=== PATIENT | male | born 1965 | race Caucasian/White ===

== ENCOUNTER → 2021-08-18 07:53 | Outpatient (CLI) | payer OTHER, SELFPAY ==
--- NOTE | 2021-08-18 08:00 | CT_ITS ---
EXAM: CT CHEST WITHOUT AND WITH INTRAVENOUS CONTRAST-Limited CLINICAL INDICATION: ABNORMAL STRESS TEST TECHNIQUE: Helically acquired images were obtained of the chest without and with intravenous contrast (for coronary artery calcium scoring and CT coronary). This CT exam was performed using one or more of the following dose reduction techniques: automated exposure control, adjustment of the mA and/or kV according to patient size, and/or use of iterative reconstruction technique. This report was created using [employer] report generation technology. MIP reconstructed images were created and reviewed. CONTRAST: IV 57mL Isovue-370 COMPARISON: None. FINDINGS: LUNGS AND PLEURAL SPACES: Incompletely imaged. No mass. No consolidation or edema. No pleural effusion or thickening. No pneumothorax. HEART: Report provided for Overread purposes only. Coronary calcium scoring and CTA coronary reported by another/cardiology service. Heart size is normal. No pericardial effusion. MEDIASTINUM: Unremarkable. No mediastinal or hilar adenopathy. Esophagus is unremarkable. No hiatal hernia. THYROID: Unremarkable. No thyroid lesions. BONES/JOINTS: Unremarkable. No suspicious lytic or blastic abnormality. VASCULATURE: Unremarkable. Thoracic aorta is non-dilated. No thoracic aortic dissection. No obvious central pulmonary embolism although this study was not performed with the pulmonary embolism protocol. IMPRESSION: No incidental findings requiring additional workup/follow-up. Electronically Signed: Santos Cordova MD (Brooks) at 14:40 EDT , Service support , EXAM: CT CHEST WITHOUT AND WITH INTRAVENOUS CONTRAST-Limited CLINICAL INDICATION: ABNORMAL STRESS TEST TECHNIQUE: Helically acquired images were obtained of the chest without and with intravenous contrast (for coronary artery calcium scoring and CT coronary). This CT exam was performed using one or more of the following dose reduction techniques: automated exposure control, adjustment of the mA and/or kV according to patient size, and/or use of iterative reconstruction technique. This report was created using [employer] report generation technology. MIP reconstructed images were created and reviewed. CONTRAST: IV 57mL Isovue-370 COMPARISON: None. FINDINGS: LUNGS AND PLEURAL SPACES: Incompletely imaged. No mass. No consolidation or edema. No pleural effusion or thickening. No pneumothorax. HEART: Report provided for Overread purposes only. Coronary calcium scoring and CTA coronary reported by another/cardiology service. Heart size is normal. No pericardial effusion. MEDIASTINUM: Unremarkable. No mediastinal or hilar adenopathy. Esophagus is unremarkable. No hiatal hernia. THYROID: Unremarkable. No thyroid lesions. BONES/JOINTS: Unremarkable. No suspicious lytic or blastic abnormality. VASCULATURE: Unremarkable. Thoracic aorta is non-dilated. No thoracic aortic dissection. No obvious central pulmonary embolism although this study was not performed with the pulmonary embolism protocol. CT/Limited Chest CT w/CCTA
[2021-08-18 08:06] VITALS: BP 115/85; PULSE 62; RESP 16; TEMP 37.1; O2SAT 96; BMI 26.5
[2021-08-18 08:29] VITALS: BP 115/85; PULSE 60
[2021-08-18] MEDS: Nitroglycerin SL (ED/IMG/CATH) 0.4 MG TABLET SL (08:29)
[2021-08-18 08:40] VITALS: BP 120/78; PULSE 62; RESP 14; O2SAT 98
--- NOTE | 2021-08-21 19:02 | CA.SCORE ---
Calcium Scoring Date of Study:: 08/18/21 Coronary Calcium Scoring: High-resolution Computed Tomographic imaging of the chest was performed on 08/18/2021 with particular attention paid to the coronary arteries. Images from the examination were analyzed for the presence and extent of coronary artery calcification , using coronary calcium quantification software. The patient tolerated the procedure well and there were no complications. The results of the coronary calcification analysis are provided below. Findings Coronary Artery Left Main (LM): 0 Left Anterior Descending (LAD): 3.58 Left Circumflex (LCX): 0 Right Coronary Artery (RCA): 0 Total Agatston Score: 3.58 Percentile Ranking: According to prepublished reference tables less than 25% of patients of the same gender/similar age had the same/lower scores Calcium Scoring Interpretation: 0 No identifiable atherosclerotic plaque. Very low cardiovascular disease risk. <5% chance of presence coronary artery disease A Negative Examination 1-10 Minimal Plaque burden. Significant coronary artery disease very unlikely. 11-100 Mild plaque burden. Likely mild or minimal coronary atherosclerosis. 101-400 Moderate plaque burden Moderate non-obstructive coronary artery disease highly likely. Over 400 Extensive plaque burden. High likelihood of at least one significant coronary stenosis (>50% diameter) Calcium Score: 1 -10 Significant coronary artery disease very unlikely Conclusion: Continue cardiovascular risk factor evaluation and care as deemed appropriate. This note was generated using a voice recognition system and there may be incorrect words, spelling or punctuation that were not noted when reviewing the office note prior to saving.
--- NOTE | 2021-08-21 19:04 | CCTA_ITS ---
CCTA w/Cont Coronary Arteries LEFT MAIN CORONARY ARTERY: The left main coronary artery appears to be a large vessel giving rise to the left anterior descending and left circumflex coronary arteries. It appears angiographically within normal limits. LEFT ANTERIOR DESCENDING CORONARY ARTERY: The left anterior descending coronary artery appears to be a large vessel giving rise to a septal dumpster operator system and a diagonal branching system. The proximal LAD has a small nonobstructive calcified appearing plaque and otherwise appears to be angiographically within normal limits. LEFT CIRCUMFLEX CORONARY ARTERY: The left circumflex coronary artery appears to be a nondominant system. It appears to be angiographically within normal limits. RIGHT CORONARY ARTERY: The right coronary artery appears to be a large dominant system. It appears to be angiographically within normal limits. THORACIC AORTA: The thoracic aorta appears to have a small area of calcification in the aortic root and otherwise appears to be angiographically within normal limits. PULMONARY ARTERY: The main and right and left pulmonary arteries appear to be patent with no obvio us filling defects. LEFT ATRIUM/APPENDAGE: The left atrial appendage appears to be without obvious filling defects. MITRAL VALVE: The mitral valve appears to be bileaflet. AORTIC VALVE: The aortic valve appears to be trileaflet. LEFT VENTRICLE: The left ventricle appears to demonstrate normal left ventricular wall motion and systolic function with the reported LVEF of 56%. CORONARY CALCIUM SCORE: The coronary calcium score was reported at 3.58 which according to prepublished reference tables is indicative of minimal plaque burden and the likelihood of significant coronary artery disease being-very unlikely. This note was generated using a voice recognition system and there may be incorrect words, spelling or punctuation that were not noted when reviewing the office note prior to saving.
== END ==
PROVIDERS: PCP Nurse Practitioner Family; Referring Provider Internal Medicine Cardiovascular Disease; Visit Provider Internal Medicine Cardiovascular Disease
DX: R07.9 Chest pain, unspecified (principal); R00.2 Palpitations; R93.1 Abnormal findings on diagnostic imaging of heart and coronary circulation; R94.39 Abnormal result of other cardiovascular function study; E78.2 Mixed hyperlipidemia; Z82.49 Family history of ischemic heart disease and other diseases of the circulatory system
CPT/HCPCS: 75571; 75574; 76380; Q9967

== ENCOUNTER 2024-05-17 14:58 | Day surgery (SDC) | payer OTHER, SELFPAY ==
[2024-05-17] VITALS (19 sets, daily range): BP systolic 119–156; BP diastolic 83–96; PULSE 12–95; RESP 16–20; TEMP 35.9–36.6; O2SAT 90–99; BMI 26.2
--- NOTE | 2024-05-17 15:14 | EX.ED.UPPERE ---
HPI History of Present Illness Chief Complaint: Upper Extremity Injury Detail of Chief Complaint: Left wrist injury Informant: patient Narrative Narrative: Patient presents with a left wrist injury that occurred prior to coming in the ER. Patient states that he was on the second rung of a ladder coming down when the ladder started to tip and he fell backwards on his buttocks and try to catch and braced himself with his arms and he injured his left wrist. He fell onto concrete and there was a wall behind him and 2 x 4. Patient is ambidextrous. Denies striking his head or loss of consciousness. Is not on blood thinners. Denies any other injuries. Unsure of his last tetanus shot. [facility] Medical History (Updated 05/17/24 @ 21:[address] Yoan Leavitt MD) Family history of [place] (myocardial infarction) Family history of early CAD Mixed hyperlipidemia Abnormal stress test Abnormal echocardiogram Home Medications ?Medication ?Instructions ?Recorded ?Last Taken ?Type multivitamin 1 tab PO DAILY 12/09/23 Unknown History saw palmetto 450 mg capsule 450 mg PO DAILY 12/09/23 Unknown History acetaminophen 500 mg tablet 1,000 mg (2 x 500 mg) PO Q8 #0 tabs 05/17/24 Unknown Rx cephalexin 500 mg capsule 500 mg PO Q8H 5 days #15 caps 05/17/24 Unknown Rx oxycodone 5 mg tablet 5 - 10 mg (1 - 2 x 5 mg) PO Q4H 05/17/24 Unknown Rx PRN PRN Pain Score 4-10 5 days #30 tabs Allergy/AdvReac Type Severity Reaction Status Date / Time No Known Allergies Allergy Verified 05/17/24 15:00 Family History Brother Myocardial infarction, Onset Age: 46 Aortic aneurysm Brother Aortic aneurysm Brother Aortic aneurysm Sister Aortic aneurysm Osteoporosis Surgical History (Updated 05/17/24 @ 19:[address] Yoan Leavitt MD) History of vasectomy History of appendectomy History of knee surgery Social History Smoking Status: Never smoker alcohol intake: current details: occasional substance use type: does not use caffeine: Yes Type: coffee Number of servings: 2 ROS ROS ED Review of Systems ROS Unobtainable: other Constitutional Constitutional ED: Reports lethargy; Denies chills, fever(s), sweats or weight loss Eyes Eyes: Denies blurry vision, change in vision or diplopia ENT ENT ED: Denies rhinorrhea or sore throat Cardiovascular Cardiovascular: Denies chest pain, orthopnea or racing heartbeat Respiratory/Chest Respiratory/Chest: Denies cough, dyspnea, dyspnea on exertion, orthopnea or sputum Gastrointestinal Gastrointestinal: Denies abdominal pain, diarrhea, nausea or vomiting Genitourinary Genitourinary ED: Denies dysuria, hematuria or urinary frequency Musculoskeletal Musculoskeletal: Reports other Details: Left wrist injury ; Denies arthralgias, back pain, myalgias or neck pain Integumentary Denies abscess, Abrasions or rash Neurologic Neurologic: Denies headache(s) or weakness Psychiatric Psychiatric: Denies anxiety, depression or suicidal thoughts Endocrine Endocrinology: Denies polydipsia, polyphagia or polyuria Hematologic/Lymphatic Hematologic/Lymphatic: Denies easy bleeding, easy bruising or lymphadenopathy Allergic/Immunologic Allergic/Immunologic ED: Denies mouth swelling, tongue swelling or urticaria EXAM Physical Exam Const Vital Signs: 05/17/24 15:00 Temperature 96.7 F L Temperature Source Temporal Pulse Rate 57 L Respiratory Rate 16 Blood Pressure 119/84 H Blood Pressure Mean 95 Pulse Ox 98 Oxygen Delivery Method Room Air Positive well nourished and well developed General Appearance ED: well developed and NAD HEENT Reports TM's clear and moist mucous membranes normocephalic and atraumatic; Negative for trauma or tenderness Tympanic Membrane ED: Yes TM's clear Eyes PERRL and EOMs intact bilaterally General Eye ED: Negative for pale conjunctiva or scleral icterus Neck no lymphadenopathy, supple and no JVD General: Negative for tenderness Chest Wall inspection of chest normal and palpation of chest normal Chest: Negative for tenderness Resp normal respiratory effort and clear to auscultation bilaterally Effort and Inspection: Negative for respiratory distress or pain with movement Auscultation: Negative for rhonchi, wheezes or diminished lung sounds Cardio regular rate, regular rhythm, S1 normal heart sound, S2 normal heart sound and no murmurs Peripheral Pulses: pulses 2+ throughout GI normal to inspection, nondistended, normoactive bowel sounds, soft to palpation, non-tender, non-distended and no masses Back/Spine no CVA tenderness and no thoracic nor lumbar tenderness Extremity Extremity Narrative: Left wrist-obvious deformity. Patient has a small 1 cm laceration over the volar aspect of the wrist over the ulnar aspect. No active bleeding. Neurovascular intact distally. No pain at the elbow. General Extremety ED: Negative for edema General Extremity: Negative for edema Neuro oriented x3, CN's II-XII intact bilaterally, no sensory deficits noted and gait normal Sensorium / Orientation: awake, alert, oriented to person, oriented to place and oriented to time Motor Exam: strength 5/5 throughout and strength abnormal Psych mental status grossly normal Skin no rashes or lesions noted and no wounds MDM MDM MDM Narrative Medical decision making narrative: Patient with injury to the left wrist. He has a distal radius fracture and ulnar styloid fracture. He has a small 1 cm laceration over the ulnar aspect of the volar wrist without active bleeding and there is no fat extruding. I suspect that clinically patient based on the x-ray fracture and where the soft tissue wound is feel this is unlikely an open fracture. I discussed case with orthopedic surgeon on-call Dr. Leavitt. He was able to visualize the x-rays. He asked that I reduce the fracture and he would be happy to follow patient up in the office. Patient will be given a tetanus booster. I did consent the patient for procedural sedation. He received propofol 130 mg IV with good sedation. Postreduction pulses were checked and he had normal pulses and normal cap refill. Patient with normal sensation after splint placement. Patient was placed in an AP splint that was fabricated by myself. Postreduction x-rays will be obtained. Postreduction films do look like there is a good reduction. Patient does have an ulnar styloid fracture. I discussed this again with the orthopedic surgeon Dr. Leavitt who is now concerned about an open fracture and would like to take the patient to the OR and do a washout and fix the fracture. Discussed this with the patient as well. Will give him a gram of Ancef IV. Radiography Diagnostic Testing: Three-view x-rays of the left wrist obtained interpreted by myself as fracture of the distal radius with dorsal displacement and angulation. Radiology in agreement that they also noted a styloid fracture of the ulna. Three-view x-rays postreduction obtained interpreted by myself as good reduction of distal radius fracture that appears now to be intra-articular. Official report from radiology pending. Procedures Procedural Sedation 1 (Initial Baseline): Consent Signed: Yes Any Problems With Anesthesia: No You/Your family experience fever (hyperthermia) w/anesthesia: No Sedation medication: Propofol Dose: 130 Route: IV Maliampati Score: Class I ASA Classification: I Discharge Plan Dx/Rx/DC Orders Clinical Impression: Distal radial fracture Disposition Disposition: Acute Care Hospital [facility] Discharge Date/Time: 05/17/24 18:49
[2024-05-17] MEDS: Ondansetron 4 MG/2 ML Vial IV (15:23)
[2024-05-17] MEDS: Morphine 4 MG/ML Syringe IV (15:23)
[2024-05-17] MEDS: Diphth,Pertuss(Acell),Tet Vac 0.5 ML Vial IM (15:23)
--- NOTE | 2024-05-17 15:42 | RAD_ITS ---
EXAM: XR LEFT WRIST COMPLETE, 3 OR MORE VIEWS CLINICAL INDICATION: injury TECHNIQUE: Frontal, lateral and oblique views of the left wrist. COMPARISON: No relevant prior studies available. FINDINGS: BONES/JOINTS: Fracture of the ulnar styloid. Comminuted and impacted distal radial fracture. There is dorsal displacement of the distal radial fracture fragment. Preservation of the joint space. No sclerotic or destructive changes observed. SOFT TISSUES: Unremarkable. No soft tissue swelling or gas. No radiopaque foreign body. RAD/Wrist min 3 Views IMPRESSION: 1. Fracture of the ulnar styloid. 2. Comminuted and impacted distal radial fracture. There is dorsal displacement of the distal radial fracture fragment. Electronically Signed: Rick Finnegan MD at 16:12 EDT ,
--- NOTE | 2024-05-17 16:35 | RAD_ITS ---
EXAM: XR LEFT WRIST COMPLETE, 3 VIEWS CLINICAL INDICATION: Post reduction TECHNIQUE: Frontal, lateral and oblique views of the left wrist. COMPARISON: Study done earlier today FINDINGS: BONES/JOINTS: Fracture of the ulnar styloid. Comminuted and impacted distal radial fracture. There is improved alignment of the distal radial fracture fragment. No sclerotic or destructive changes observed. SOFT TISSUES: Unremarkable. Soft tissue swelling. No radiopaque foreign body. RAD/Wrist min 3 Views IMPRESSION: 1. Fracture of the ulnar styloid. 2. Comminuted distal radial fracture. Improved alignment status post reduction. Electronically Signed: Rick Finnegan MD at 17:30 EDT ,
[2024-05-17] MEDS: Cefazolin 1 GM/50 ML BAG IV (17:25)
--- NOTE | 2024-05-17 17:25 | EKG12_ITS ---
Test Reason : PRE OP Blood Pressure : / mmHG Vent. Rate : 053 BPM Atrial Rate : 053 BPM P-R Int : 202 ms QRS Dur : 090 ms QT Int : 426 ms P-R-T Axes : 042 001 035 degrees QTc Int : 399 ms Sinus bradycardia Otherwise normal ECG When compared with ECG of 04-APR-2009 10:24, No significant change was found Confirmed by LOLLY MARTINEZ, ASH ([id number]), slip operator SHERRELL VILLARREAL ([id number]) on 05/20/2024 1:30:30 PM Referred By: MARCK Confirmed By:ASH AMBROCIO MD
--- NOTE | 2024-05-17 19:09 | PCM.PRE.AN2 ---
ASA Classification* ASA Classification ASA Classification: 2 and E Assessment & Plan Anesthesia* Anesthesia Assessment Anesthesia Assessment: Discussed sedation and/or anesthesia options, risks, benefits, and alternatives with patient/parents/legal guardian/POA. Questions invited. The patient/parents/legal guardian/POA seems to understand and agrees to proceed with anesthesia plan. Reviewed the physical assessment, medical history, allergy history and patient home medications list prior to surgery/procedure/anesthetic and documented any changes. Performed airway and anesthesia risk assessments. Anesthesia Type Anesthesia Type: General (RSI, Food 11 am this morning) Anesthesia Focused Assessment* Temperature: 97.7 F Pulse Rate: 62 Blood Pressure: 126/86 Respiratory Rate: 16 Pulse Ox: 99 Airway Assessment Mouth opens: >3 cm Mallampati Score: II Focused Labs Anesthesia Preop lab: CBC WBC 6.2 k/mm3 (4.4-11.0) 06/24/13 06:50 RBC 4.28 M/mm3 (4.6-6.2) L 06/24/13 06:50 Hgb 13.9 g/dl (13.0-16.5) 06/24/13 06:50 Hct 40.1 % (40-54) 06/24/13 06:50 Plt Count 176 K/mm3 (150-450) 06/24/13 06:50 CHEMISTRY Potassium 3.8 mmol/L (3.5-5.1) 06/24/13 06:50 Sodium 141 mmol/L (136-145) 06/24/13 06:50 BUN 11 mg/dL (7-18) 06/24/13 06:50 Creatinine 1.0 mg/dL (0.8-1.3) 06/24/13 06:50 Glucose 93 mg/dL (70-110) 06/24/13 06:50 COAG Pre-Assessment Diagnosis/Proposed Procedure Planned Operative Procedure(s): ORIF Radial fracture Anesthesia History Anesthesia History - state archivist: Anesthesia History - state archivist Hx Hospitalization Any Problems With Anesthesia [ No 05/17/24 16:02 1 (Initial Baseline)] Any Problems With Anesthesia No 05/17/24 17:06 Cholinesterase deficiency No 05/17/24 17:06 You/Your Family Experience No 05/17/24 17:06 fever (hyperthermia) with Relationship Recent Exposure to Contagious No 05/17/24 17:06 Disease Does patient have nerve No 05/17/24 17:06 stimulator Patient instructed to have No 05/17/24 17:06 device shut off --Does patient have Pacemaker No 05/17/24 17:06 or ICD? When Was Last Pacemaker Check QUESTION #4 FULL TEXT: You/Your Family Experience fever (hyperthermia) with Anesthesia Last Oral Intake Last Oral intake: Last Oral Intake NPO since 11:00 05/17/24 17:06 Meds taken in AM with sips of water? Meds patient instructed to take am of surgery PONV PONV - state archivist: PONV - state archivist Female HX of Motion Sickness HX of N/V After Surgery Non-Smoker Duration of Surgery greater than 60 minutes Number of Risk Factors PONV Score Height & Weight Height & Weight: Anesthesia: Height & Weight Height 5 ft 9 in 05/17/24 17:06 Weight: 80.739 kg 05/17/24 17:06 Body Mass Index (BMI) 26.2 05/17/24 17:06 Respiratory Assessment Respiratory Assessment - state archivist: Respiratory Tract Infection Hx - state archivist Hx Respiratory Tract Infection No 05/17/24 17:06 STOP Sleep Apnea STOP Sleep Apnea - state archivist: STOP Sleep Apnea - state archivist Hx Hypertension No 05/17/24 17:06 Hx Sleep Apnea No 05/17/24 17:06 CPAP BIPAP Do you snore loudly (louder No 05/17/24 17:06 than talking or can be heard Do you often feel tired/ No 05/17/24 17:06 fatigued/ sleepy during daytime? Has anyone observed you stop No 05/17/24 17:06 breathing during sleep? STOP Results Negative 05/17/24 17:06 QUESTION #5 FULL TEXT : Do you snore loudly (louder than talking or can be heard through closed doors)? Tobacco Use History Tobacco Use History - state archivist: Tobacco Use History - state archivist Tobacco Use Non-smoker 06/12/21 11:39 Smoking Status Never smoker 05/17/24 15:30 Hx Tobacco Use Years Smoking Packs Smoked per Day Smoking Cessation Date was within the last 15 years Hx Smoking Cessation Date Hx Smoking Cessation Counseling Hematologic Medial History Hematologic Hx - state archivist: Hematologic Medical Hx - assistant merchandise manager Hx of Blood Transfusion Hx of Transfusion in last 3 Months Date of Last Transfusion (if within last 3 months) Ever experience any problems with transfusion(s)? Specify any problems Hx of Preganancy in last 3 Months Nurse Filling Out Transfusion & Questions: Date: Time: Patient unable to answer at this time (ie. confused, unrespo /Reproduction History /Reproductive History - state archivist: /Reproductive Hx- state archivist Hx Now No 05/17/24 17:06 Gestational Age (in weeks): EDC: Hx Hx Para Hx Section SAB No 05/17/24 17:06 [facility] Medical History Family history of [place] (myocardial infarction) Family history of early CAD Mixed hyperlipidemia Abnormal stress test Abnormal echocardiogram Home Medications ?Medication ?Instructions ?Recorded ?Last Taken ?Type multivitamin 1 tab PO DAILY 12/09/23 Unknown History saw palmetto 450 mg capsule 450 mg PO DAILY 12/09/23 Unknown History cephalexin 500 mg capsule 500 mg PO Q6 #40 CAPSULES 05/17/24 Unknown Rx hydrocodone-acetaminophen 5-325mg 1 tab PO Q4H PRN PRN Pain 3 days 05/17/24 Unknown Rx 5mg-325mg #15 TABLETS Allergy/AdvReac Type Severity Reaction Status Date / Time No Known Allergies Allergy Verified 05/17/24 15:00 Family History Brother Myocardial infarction, Onset Age: 46 Aortic aneurysm Brother Aortic aneurysm Brother Aortic aneurysm Sister Aortic aneurysm Osteoporosis Surgical History History of vasectomy History of appendectomy History of knee surgery Social History Smoking Status: Never smoker alcohol intake: current details: occasional substance use type: does not use caffeine: Yes Type: coffee Number of servings: 2 Review of Systems (Anesthesia) ROS Narrative System reviewed and no additional complaints, except as documented.
--- NOTE | 2024-05-17 19:39 | HP.PCM_ITS ---
[facility] - General General Date of Admission: 05/17/24 Chief Complaint: Left wrist injury HPI Narrative ANY LAMBERT, is a 59 M who presents with limited medical history. Patient was climbing up a ladder today trying to carry some shingles. When he was stepping down the second rung per his son the second rung broke and patient fell backwards. He landed on his left arm. Patient writes with his left arm but overall is ambidextrous. 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 He denies any associated numbness and tingling. Current pain is a 4 out of 10 in his left wrist. Have a closed reduction in the emergency department. They did note that he had ulnar-sided injury with laceration on that side initially there was not felt to be any ulnar-sided fracture however upon postreduction films became evident that there was a ulnar styloid fracture and significant concern for a open fracture prompted urgent orthopedic consultation. [facility] Medical History Family history of [place] (myocardial infarction) Family history of early CAD Mixed hyperlipidemia Abnormal stress test Abnormal echocardiogram Home Medications ?Medication ?Instructions ?Recorded ?Last Taken ?Type multivitamin 1 tab PO DAILY 12/09/23 Unknown History saw palmetto 450 mg capsule 450 mg PO DAILY 12/09/23 Unknown History cephalexin 500 mg capsule 500 mg PO Q6 #40 CAPSULES 05/17/24 Unknown Rx hydrocodone-acetaminophen 5-325mg 1 tab PO Q4H PRN PRN Pain 3 days 05/17/24 Unknown Rx 5mg-325mg #15 TABLETS Allergy/AdvReac Type Severity Reaction Status Date / Time No Known Allergies Allergy Verified 05/17/24 15:00 Family History Brother Myocardial infarction, Onset Age: 46 Aortic aneurysm Brother Aortic aneurysm Brother Aortic aneurysm Sister Aortic aneurysm Osteoporosis Surgical History (Updated 05/17/24 @ 19:[address] Yoan Leavitt MD) History of vasectomy History of appendectomy History of knee surgery Social History Smoking Status: Never smoker alcohol intake: current details: occasional substance use type: does not use caffeine: Yes Type: coffee Number of servings: 2 ROS ROS Narrative 14 point review systems outside of what is mentioned in HPI is negative Vital Signs Vital Signs Vital Signs: 05/17/24 15:00 05/17/24 16:13 05/17/24 16:32 Temperature 96.7 F L Temperature Source Temporal Pulse Rate 57 L 54 L Pulse Rate [1 (Initial Baseline)] 12 L Pulse Rate [2] 53 L Pulse Rate [3] 60 Pulse Rate [4] 57 L Respiratory Rate 16 18 Respiratory Rate [1 (Initial Baseline)] 18 Respiratory Rate [2] 17 Respiratory Rate [3] 20 H Respiratory Rate [4] 20 H Blood Pressure 119/84 H 125/88 H Blood Pressure [1 (Initial Baseline)] 135/87 H Blood Pressure [2] 142/83 H Blood Pressure [3] 133/94 H Blood Pressure [4] 126/89 H Blood Pressure Mean 95 Blood Pressure Source Blood Pressure Position Blood Pressure Location Pulse Ox 98 98 Oxygen Delivery Method Room Air Room Air Oxygen Delivery Method [1 (Initial Baseline)] Nasal Cannula Oxygen Delivery Method [2] Nasal Cannula Oxygen Delivery Method [3] Nasal Cannula Oxygen Delivery Method [4] Nasal Cannula Oxygen Flow Rate (L/min) [1 (Initial Baseline)] 2 Oxygen Flow Rate (L/min) [2] 2 Oxygen Flow Rate (L/min) [3] 2 Oxygen Flow Rate (L/min) [4] 2 05/17/24 16:32 05/17/24 16:37 05/17/24 16:42 Temperature Temperature Source Pulse Rate Pulse Rate [1 (Initial Baseline)] Pulse Rate [2] Pulse Rate [3] Pulse Rate [4] Respiratory Rate Respiratory Rate [1 (Initial Baseline)] Respiratory Rate [2] Respiratory Rate [3] Respiratory Rate [4] Blood Pressure Blood Pressure [1 (Initial Baseline)] Blood Pressure [2] Blood Pressure [3] Blood Pressure [4] Blood Pressure Mean Blood Pressure Source Blood Pressure Position Blood Pressure Location Pulse Ox Oxygen Delivery Method Room Air Room Air Room Air Oxygen Delivery Method [1 (Initial Baseline)] Oxygen Delivery Method [2] Oxygen Delivery Method [3] Oxygen Delivery Method [4] Oxygen Flow Rate (L/min) [1 (Initial Baseline)] Oxygen Flow Rate (L/min) [2] Oxygen Flow Rate (L/min) [3] Oxygen Flow Rate (L/min) [4] 05/17/24 17:00 05/17/24 17:03 05/17/24 17:06 Temperature 97.7 F L 97.7 F L Temperature Source Temporal Pulse Rate 62 61 62 Pulse Rate [1 (Initial Baseline)] Pulse Rate [2] Pulse Rate [3] Pulse Rate [4] Respiratory Rate 17 16 16 Respiratory Rate [1 (Initial Baseline)] Respiratory Rate [2] Respiratory Rate [3] Respiratory Rate [4] Blood Pressure 156/90 H 156/88 H 156/90 H Blood Pressure [1 (Initial Baseline)] Blood Pressure [2] Blood Pressure [3] Blood Pressure [4] Blood Pressure Mean 112 110 112 Blood Pressure Source Monitor Blood Pressure Position Supine Blood Pressure Location Right Arm Pulse Ox 98 98 98 Oxygen Delivery Method Room Air Room Air Oxygen Delivery Method [1 (Initial Baseline)] Oxygen Delivery Method [2] Oxygen Delivery Method [3] Oxygen Delivery Method [4] Oxygen Flow Rate (L/min) [1 (Initial Baseline)] Oxygen Flow Rate (L/min) [2] Oxygen Flow Rate (L/min) [3] Oxygen Flow Rate (L/min) [4] 05/17/24 18:37 05/17/24 19:10 Temperature 97.7 F L Temperature Source Pulse Rate 62 62 Pulse Rate [1 (Initial Baseline)] Pulse Rate [2] Pulse Rate [3] Pulse Rate [4] Respiratory Rate 16 16 Respiratory Rate [1 (Initial Baseline)] Respiratory Rate [2] Respiratory Rate [3] Respiratory Rate [4] Blood Pressure 126/86 H 126/86 H Blood Pressure [1 (Initial Baseline)] Blood Pressure [2] Blood Pressure [3] Blood Pressure [4] Blood Pressure Mean 99 Blood Pressure Source Blood Pressure Position Blood Pressure Location Pulse Ox 99 99 Oxygen Delivery Method Room Air Oxygen Delivery Method [1 (Initial Baseline)] Oxygen Delivery Method [2] Oxygen Delivery Method [3] Oxygen Delivery Method [4] Oxygen Flow Rate (L/min) [1 (Initial Baseline)] Oxygen Flow Rate (L/min) [2] Oxygen Flow Rate (L/min) [3] Oxygen Flow Rate (L/min) [4] Weight Weight: 178 lb Body Mass Index (BMI) 26.2 Physical Exam Const alert, oriented x3 and no apparent distress General Appearance: cooperative, comfortable and well kempt HEENT normocephalic Eyes PERRL Neck No nuchal rigidity Resp normal respiratory effort Cardio regular rate GI non-distended Extremity Extremity Narrative: Left upper extremity: Patient is in a splint which goes out with up his fingers. All fingers are warm and pink with brisk cap refill. Patient is able to slightly move all digits. Patient able to give thumbs up. Sensations intact light touch R/M/U distally. Splint was not removed for patient's comfort. Will reexamine preoperatively/intraoperatively. Per reports from the emergency department patient does have a 1 cm laceration over the distal ulna. Neuro oriented x3 and CN's II-XII intact bilaterally Speech: speech normal Psych affect normal Results Medical Records Data Attestation: I reviewed the patient's medical records Imaging Radiology Impression Wrist X-Ray 05/17/24 15:42 IMPRESSION: 1. Fracture of the ulnar styloid. 2. Comminuted and impacted distal radial fracture. There is dorsal displacement of the distal radial fracture fragment. Electronically Signed: Rick Finnegan MD at 16:12 EDT , Wrist X-Ray 05/17/24 16:35 IMPRESSION: 1. Fracture of the ulnar styloid. 2. Comminuted distal radial fracture. Improved alignment status post reduction. Electronically Signed: Rick Finnegan MD at 17:30 EDT , Assessment & Plan Assessment/Plan (1) Distal radial fracture: PLAN: Patient has a 2 part intra-articular distal radius fracture with grade 1 open ulnar styloid fracture. Natural history of the disease process and treatment options were discussed the patient. Patient did receive antibiotics in the emergency department. I discussed the patient that overall the alignment of the distal radius after close reduction with appropriate however with an open fracture we did recommend irrigation debridement of the wound and fixation of the fracture at that time. More importantly we will need to irrigate debride the ulnar styloid fracture with plans to repair it as it is at the root of the ulnar styloid. Risks and benefits of the procedure were discussed the patient including but not limited to blood loss, DVTs, PEs, nervous damage complex, the risk of anesthesia, loss of life. Nonunion, malunion, painful hardware and failed hardware are also risk associated with the surgery. Patient demonstrates an understanding. His is at bedside and also demonstrates understanding. We are proceeding based on the emergency room assessment of an open fracture. The team is here and available. Additionally, there is not and appropriate operating room time in the next 24 hours so I did elect to proceed with surgery in an emergent fashion this evening. All parties are agreeable to the treatment plan. Will redose his antibiotics intraoperatively. I will plan on discharging the patient with 1 week of antibiotics after surgery.
[2024-05-17] MEDS: Cefazolin 2 GM in 0.9% Normal Saline (100mL Bag) 100 ML IV (19:52)
--- NOTE | 2024-05-17 20:00 | RAD_ITS ---
STUDY: INTRAOPERATIVE FLUOROSCOPY TECHNIQUE: The examination was performed with referring physician in attendance. Under fluoroscopic observation, fluoroscopic images were obtained. Radiologist was not present for the study. Radiologist did not perform the procedure. This dictation is for documentation of the radiation dosage only. There is no interpretation of the images. TOTAL NUMBER OF IMAGES: 1 COMPARISON: None RADIATION DOSE: 0.72 mGy FLUOROSCOPY TIME: 47.6 seconds REASON FOR EXAM: ORIF Male, 59 years old. FINDINGS: Fracture ORIF. RAD/Wrist 2 Views IMPRESSION: Fluoroscopic assistance images were obtained. Dictation for documentation purposes only. Electronically Signed: Rick Finnegan MD at 21:54 EDT ,
[2024-05-17] MEDS: Bupivacaine Mpf 0.5% 30 ML VIAL (21:13)
--- NOTE | 2024-05-17 21:28 | PCM.POST.ANE ---
Anesthesia: Postop Eval I Current Vital Signs Temperature: 97.6 F Pulse Rate: 95 Blood Pressure: 141/89 Respiratory Rate: 17 Pulse Ox: 91 Assessment Airway patent: Yes Spontaneous unlabored respirations: Yes nausea: No Vomiting: No Anesthesia Complication: No Fluid Hydration Crystalloid volume administer (ml): 500 Total IV fluid infused: 500 Progress Note Anesthesia document: Postop Eval 1 completed: Yes
--- NOTE | 2024-05-17 21:29 | PCM.OPRPT ---
Report of Operation Date of Procedure: 05/17/24 Pre-Operative Diagnosis: 1. Left 2 part intra-articular distal radius fracture 2. Left grade 1 open ulnar styloid fracture Post-Operative Diagnosis: 1. Left 2 part intra-articular distal radius fracture 2. Left grade 1 open ulnar styloid fracture Surgery/Procedure Performed:: 1. Open reduction internal fixation left 2 part intra-articular distal radius fracture 2. Open reduction internal fixation left ulnar styloid fracture 3. Irrigation debridement skin subcutaneous tissue fat fascia and bone left ulna 8 cm Description of Surgical Findings:: Patient had a 1 cm laceration over the volar aspect of the ulnar styloid fracture which tracked down to the fracture site. Surgeon: Yoan Leavitt resident care supervisor: Virginia Mccabe Type of Anesthesia: General Anesthesiologist: Tommy Rome Special Medications: 2 g of Ancef Estimated Blood Loss (mL): 10 mL Fluids Replaced: 500 mL Description of Procedure: On the day of the procedure patient was seen and evaluated in the preoperative area. Patient was then consented for surgical intervention. We did not remove the splint in the preoperative area. Left upper extremity was identified by the splint. Patient was brought back to the operating room and transferred the table in supine position. Anesthesia central C-spine area made sure throughout the main the procedure. After anesthetizing the patient's splint was removed. We were able to examine the skin. Patient did in fact have a 1 cm laceration on the volar aspect of the ulnar aspect of his wrist. Gross blood and flat globules were appreciated. At this time tourniquet was placed on the left upper arm. Area was clipped of hair and the wound was carefully prepped in a sterile fashion while the surgeon scrubbed. All bony prominences had previously been identified and were well-padded. Upon reentering the room the left upper extremity was draped in the standard orthopedic fashion. Timeout was called and was agreed upon the side, the site, the procedure to be performed, patient's identity and antibiotics given. Esmarch bandage was used exsanguinate the extremity and tourniquet was placed to 250 mmHg. Based on the open wound we elected to proceed with the ulna first. Based on the location of the injury and where we need to make an incision to dress the fracture a T-type incision was made along the distal ulna shaft connecting it to the horizontal laceration. Overall this wound was about 8 cm in length. We carefully dissected down to the bone spreading with scissors with blunt dissection. Once we are able to identify the fracture the wound was copiously irrigated out with normal saline. We could verify that the wound from exteriorly did communicate with this fracture. Once we irrigated about 1 L of normal saline throughout the wound with low-pressure lavage we then turned our attention to fixing the ulnar styloid fracture. A drill was used to drill through the ulnar styloid and drill holes were made in the ulna shaft. We then passed a #2 FiberWire suture in a [id number] tension band fashion fixed the fracture. Live x-ray was used to verify fracture reduction and final suture knot was tied down. Once this was done we directed our attention to the radius. Upon directed our attention to the radius a standard volar Eduardo approach was used and the incision was made over the FCR. FCR superficial fascia was identified and incised along with the tendon and retracted ulnarly. We then incised the deep fascia and retracted the FPL ulnarly. The pronator quadratus was significantly traumatized remainder of what was left was incised from the radial border of the radius and retracted ulnarly. The fracture was identified. We could then reduce the fracture. Once we had a visual fracture reduction K wire was passed across the fracture and help to hold fracture reduction we utilized x-ray to verify fracture reduction. Once we have with fracture reduction and plate was provisionally fixed. We used the plate to help reduce the fracture as it was contoured anatomic plate. For screw was placed in the oblong hole in the proximal portion of the plate and the appropriate position of the plate was then positioned under live fluoroscopy. Once we are happy with this we used a cortical screw distally to bring the plate to the bone. We then tightened the oblong screw to help reduce the fracture. Live x-rays used to verify fracture reduction and plate placement which we are satisfied with. 4 additional locking screws were placed distally. Initially it appeared the 20 mm screws to be appropriate for the ulnar styloid screw holes however after placing our locking screws. They were slightly prominent. These were removed and 18 mm screws were placed which were not prominent anymore. Once were happy with this 2 additional 2/7 cortical screws were placed in the radial shaft. Live x-ray was used to verify plate placement and fracture reduction. Remainder of the screws appear to be appropriate in length. Wound was copiously irrigated out with normal saline. We closed the radial wound first based on the trauma to the pronator quadratus that cannot be repaired. No fascia was repaired. Skin was closed with 2-0 Vicryl and final skin closure was done with nylon running suture. Finally we closed the T-type incision over the ulna distally. This was done with 2-0 Vicryl and final skin closure was done with nylon sutures. 1 more round of irrigation was done prior to closure. Once this was completed Xeroform dressings were placed over both incisions. Sterile dressings were placed compressed dressing was placed. Tourniquet was let down. Volar splint was placed. Patient was awakened anesthesia transferred to PACU for care. Prior to placing her dressings we did place 30 cc of 0.5% Marcaine for local field block. Postop plan: Weightbearing status: 6 weeks nonweightbearing Splint: Remove splint in 2 weeks begin range of motion exercises with the wrist Open fracture: Will place patient on Keflex 500 mg p.o. twice daily for the next 5 days Dispo: Plan is to discharge patient home this evening. Will begin pain medications and antibiotics tomorrow. Patient's is instructed to ice and elevate knee were instructed on splint and wound care this evening. Grafts/Implants Used: 3 hole Synthes distal radius plate anatomic left Complications No intraoperative complications Admit VTE Documentation VTE Present on Admission: No VTE Mechan Device Prophylaxis: SCD's VTE Pharm Prophylaxis ordered?: No
--- NOTE | 2024-05-17 21:30 | POSTOPAN2_ITS ---
Anesthesia Postop Eval I Sum Postop Eval Completion status Anesthesia document: Postop Eval 1 completed: Yes Anesthesia Postop Eval I Summary Anesthesia Postop Eval I Summary: Anesthesia Postop Eval I: Assessment Summary Airway patent Yes 05/17/24 21:28 CONFIGURATION MANAGEMENT [email or web address].[email or web address] Spontaneous unlabored Yes 05/17/24 21:28 CONFIGURATION MANAGEMENT ANALYST.[email or web address] respirations Mental status nausea No 05/17/24 21:28 CONFIGURATION MANAGEMENT ANALYST.[email or web address] Vomiting No 05/17/24 21:28 CONFIGURATION MANAGEMENT ANALYST.[email or web address] Anesthesia Postop Eval I: Fluid Summary Crystalloid volume administer 500 05/17/24 21:28 CONFIGURATION MANAGEMENT ANALYST.JCOTE (ml) Colloids volume administered ( ml) Blood Product volume administered (ml) Total IV fluid infused 500 05/17/24 21:28 CONFIGURATION MANAGEMENT ANALYST.[email or web address] Anesthesia Postop Eval I: Summary Notes Anesthesia Complication No 05/17/24 21:28 CONFIGURATION MANAGEMENT ANALYST.[email or web address] Anesthesia Complication Comment: Post-operative progress note Anesthesia: Postop Eval II Evaluation Mental status: Awake Pain Level: 1 nausea: No Vomiting: No
--- NOTE | 2024-05-17 21:30 | PCM.POSTANE2 ---
Anesthesia Postop Eval I Sum Postop Eval Completion status Anesthesia document: Postop Eval 1 completed: Yes Anesthesia Postop Eval I Summary Anesthesia Postop Eval I Summary: Anesthesia Postop Eval I: Assessment Summary Airway patent Yes 05/17/24 21:28 PUBLICATIONS PRODUCTION [email or web address] Spontaneous unlabored Yes 05/17/24 21:28 PUBLICATIONS PRODUCTION SUPERVISOR.[email or web address] respirations Mental status nausea No 05/17/24 21:28 PUBLICATIONS PRODUCTION SUPERVISOR.[email or web address] Vomiting No 05/17/24 21:28 PUBLICATIONS PRODUCTION SUPERVISOR.[email or web address] Anesthesia Postop Eval I: Fluid Summary Crystalloid volume administer 500 05/17/24 21:28 PUBLICATIONS PRODUCTION SUPERVISOR.[email or web address] (ml) Colloids volume administered ( ml) Blood Product volume administered (ml) Total IV fluid infused 500 05/17/24 21:28 PUBLICATIONS PRODUCTION [email or web address].[email or web address] Anesthesia Postop Eval I: Summary Notes Anesthesia Complication No 05/17/24 21:28 PUBLICATIONS PRODUCTION [email or web address].[email or web address] Anesthesia Complication Comment: Post-operative progress note Anesthesia: Postop Eval II Evaluation Mental status: Awake Pain Level: 1 nausea: No Vomiting: No
[2024-05-17] MEDS: Ketorolac 30 MG/ML Syringe IV (21:34)
[2024-05-17] MEDS: Lactated Ringers 1,000 ML 15 ML IV (21:36)
--- NOTE | 2024-05-17 21:49 | DCINST_ITS ---
Discharge Instructions Diet Discharge Diet: No restrictions Activity Discharge Activity: May Shower (keep splint dry) and May Take a Tub Bath (keep splint dry) May resume sexual activity in: No Restrictions Weight Bearing Status: No weight bearing Keep extremity elevated above heart level: Operative Extremity Additional Activity Instructions:: ice to operative extremity Dressing / Incision Call your doctor if your incision/area has: Continuous Slow Oozing, Sudden Increased Bleeding, Increased Pain/ Swelling, Increased Redness, Foul Smelling Discharge and Swelling at the incision site Call your doctor if you observe: Fever of 101 or Higher Change Dressing in: do not change dressing Remove Dressing in: do not remove dressing Follow Up Care Please Follow Up With: Kian Hunt, PA-C When: [address] date[address] Leavitt's PA. call [phone] for appointment or questions. Test Results: Test results from this visit will be discussed in further detail at your follow- up appointment, if applicable. Discharge Plan Admission Admit Date/Time: 05/17/24 18:18 Attending Provider: Yoan Leavitt Primary Care Provider: Aj Lemons NP Discharge Orders/Prescriptions Prescriptions: New acetaminophen 500 mg Tablet 1,000 mg PO Q8 Qty: 0 0RF oxycodone 5 mg Tablet 5 - 10 mg PO Q4H PRN PRN (Reason: Pain Score 4-10) 5 Days Qty: 30 0RF cephalexin 500 mg capsule 500 mg PO Q8H 5 Days Qty: 15 0RF Continued multivitamin Tablet 1 tab PO DAILY saw palmetto 450 mg capsule 450 mg PO DAILY Rx Instructions: give with food (meal/snack) Referrals / Follow Up: Yoan Leavitt MD [Med Staff - Active Staff] - 3-5 Days Aj Lemons NP, COMPOUNDING PHARMACY TECHNICIAN-C [Primary Care Provider] - Disposition Disposition (needs filled in before D/C Order can be placed): Home, Self Care
[2024-05-17] MEDS: morphine SR 15 MG Tablet PO (22:05)
== END 2024-05-17 22:28 | disposition home or self-care (01) ==
LOC: ED 18:00 → MS3 21:45 → SDC 05-18 12:23
PROVIDERS: Emergency Provider Emergency Medicine; PCP Nurse Practitioner Family; Visit Provider Specialist
PROC: (CPT 25608; principal; 2024-05-17 19:00)
DX: S52.572A Other intraarticular fracture of lower end of left radius, initial encounter for closed fracture (principal); S52.612B Displaced fracture of left ulna styloid process, initial encounter for open fracture type I or II; W11.XXXA Fall on and from ladder, initial encounter
CPT/HCPCS: 25608; 25545; 01830; 73100; 73110; 76000; 90715; 93005; 99152; 99284; C1713; J7030; J7120; A4216; J2405